=== PATIENT | male | born 1960 | race Caucasian/White ===

== ENCOUNTER 2016-07-10 08:35 | Emergency (ER) | payer MEDICARE, OTHER ==
[~2016-07-10] VITALS: Ht 175.3 cm; Wt 127.0 kg
[2016-07-10] MEDS ORDERED: SODIUM CHLORIDE FLUSH 10ML SYR IVF ONE (09:30)
[2016-07-10] MEDS ORDERED: ONDANSETRON 2MG/ML, 2ML IVPush ONE (09:30)
[2016-07-10] MEDS ORDERED: SODIUM CHLORIDE 0.9% 1,000ML IVBOLUS ONE (09:30)
[2016-07-10] MEDS ORDERED: MORPHINE SULFATE 4 MG/ML, 1ML IVPush PRN (09:30)
[2016-07-10] MEDS ORDERED: MORPHINE SULFATE 4 MG/ML, 1ML ONE (09:55)
[2016-07-10] MEDS ORDERED: ONDANSETRON 2MG/ML, 2ML ONE (09:55)
[2016-07-10 10:30] LABS: IS PT STATUS REG ER OR PRE ER? YES
[2016-07-10] MEDS ORDERED: ALBUTEROL/IPRATROPIUM 2.5MG/0.5MG, 3 ML NPPB ONE (10:30)
[2016-07-10] MEDS ORDERED: ALBUTEROL/IPRATROPIUM 2.5MG/0.5MG, 3 ML ONE (10:34)
[2016-07-10 10:39] LABS: ASPARTATE AMINO TRANSFERASE 25 U/L (15-37); BLOOD UREA NITROGEN 7 mg/dL (7-18)
[2016-07-10] MEDS ORDERED: methylPREDNISolone SOD SUCC 125 MG/2 ML IVPush SCH (11:30)
[2016-07-10] MEDS ORDERED: methylPREDNISolone SOD SUCC 125 MG/2 ML ONE (11:32)
[2016-07-10 12:30] VITALS: BP 142/75
== END 2016-07-10 12:33 | disposition home or self-care (01) ==
LOC: ED 09:07
DX: J44.1 Chronic obstructive pulmonary disease with (acute) exacerbation (principal); R10.9 Unspecified abdominal pain; E78.5 Hyperlipidemia, unspecified
CPT/HCPCS: 36415; 74022; 80053; 81003; 83690; 83880; 84484; 85025; 85379; 85610; 85730; 93005; 93970; 94640; 96361; 96374; 96375; 99285; J2405; J2930; J7030; J7620

== ENCOUNTER 2017-02-27 19:06 | Emergency (ER) | payer MEDICARE, OTHER ==
[~2017-02-27] VITALS: Ht 177.8 cm; Wt 132.5 kg
[2017-02-27 19:35] LABS: BASOPHILS # (AUTO) 0.02 x10^3/uL (0-0.1); BASOPHILS % (AUTO) 0 % (0-1); EOSINOPHILS # (AUTO) 0.13 x10^3/uL (0-0.4); EOSINOPHILS % (AUTO) 1 % (1-7); LYMPHOCYTES # (AUTO) 1.98 x10^3/uL (1-3.4); LYMPHOCYTES % (AUTO) 21 % (22-44); MD NO; MEAN CORPUSCULAR HEMOGLOBIN 33.3 pg (27.5-34.5); MEAN CORPUSCULAR HGB CONC 33.3 g/dL (33.2-36.2); MEAN CORPUSCULAR VOLUME 100.2 fL (81-97); MEAN PLATELET VOLUME 8.7 fL (7.4-10.4); MONOCYTES # (AUTO) 0.61 x10^3/uL (0.2-0.8); MONOCYTES % (AUTO) 7 % (2-9); NEUTROPHILS # (AUTO) 6.54 x10^3/uL (1.8-6.8); NEUTROPHILS % (AUTO) 71 % (42-75); PLATELET COUNT 142 x10^3/uL (130-400); RED BLOOD COUNT 5.77 x10^6/uL (4.38-5.82); RED CELL DISTRIBUTION WIDTH 13.9 % (9.4-14.8)
[2017-02-27 19:49] LABS: ALANINE AMINOTRANSFERASE 18 U/L (12-78); ALBUMIN 3.5 g/dL (3.4-5.0); ANION GAP 7 mmol/L (5-15); CALCIUM 9.2 mg/dL (8.5-10.1); CHLORIDE 102 mmol/L (98-107); CREATININE 0.99 mg/dL (0.7-1.3)
[2017-02-27 19:51] LABS: ALKALINE PHOSPHATASE 96 U/L (45-117); BILIRUBIN,TOTAL 0.7 mg/dL (0.2-1.0); TOTAL PROTEIN 8.4 g/dL (6.4-8.2)
[2017-02-27] MEDS ORDERED: methylPREDNISolone SOD SUCC 125 MG/2 ML IVPush SCH (20:00)
[2017-02-27] MEDS ORDERED: SODIUM CHLORIDE 0.9% 1,000ML IVBOLUS ONE (20:00)
[2017-02-27] MEDS ORDERED: ALBUTEROL/IPRATROPIUM 2.5MG/0.5MG, 3 ML NPPB ONE (20:00)
[2017-02-27] MEDS ORDERED: ALBUTEROL SULFATE 2.5 MG/3 ML NPPB ONE (20:00)
[2017-02-27] MEDS ORDERED: OMNIPAQUE 350 MG/ML, 100ML BOTTLE ONE (20:00)
[2017-02-27] MEDS ORDERED: ONDANSETRON 2MG/ML, 2ML IVPush ONE (20:00)
[2017-02-27] MEDS ORDERED: SODIUM CHLORIDE FLUSH 10ML SYR IVF ONE (20:00)
[2017-02-27] MEDS ORDERED: ALBUTEROL/IPRATROPIUM 2.5MG/0.5MG, 3 ML ONE (20:06)
[2017-02-27] MEDS ORDERED: MORPHINE SULFATE 4 MG/ML, 1ML ONE ×2 (20:13→22:29)
[2017-02-27] MEDS ORDERED: ONDANSETRON 2MG/ML, 2ML ONE (20:13)
[2017-02-27] MEDS: MORPHINE SULFATE 4 MG/ML, 1ML IVPush PRN ×2 (20:26→22:31)
[2017-02-27] MEDS ORDERED: methylPREDNISolone SOD SUCC 125 MG/2 ML IVPush ONE (20:30)
[2017-02-27] MEDS ORDERED: methylPREDNISolone SOD SUCC 125 MG/2 ML ONE (20:38)
[2017-02-27 20:41] VITALS: BP 148/95
[2017-02-27 21:00] LABS: MICROSCOPIC AUTO
[2017-02-27 21:02] LABS: CULTURE INDICATED? NO
== END 2017-02-27 23:44 | disposition home or self-care (01) ==
LOC: ED 23:15
DX: R10.84 Generalized abdominal pain (principal); J44.1 Chronic obstructive pulmonary disease with (acute) exacerbation; F17.200 Nicotine dependence, unspecified, uncomplicated; E78.00 Pure hypercholesterolemia, unspecified
CPT/HCPCS: 36415; 71045; 74177; 80053; 81001; 83690; 85025; 93005; 94640; 96361; 96374; 96375; 96376; 99285; J2405; J2930; J7030; Q9967; J7620

== ENCOUNTER 2018-03-26 21:57 | Inpatient (IN) | payer MEDICARE ==
[~2018-03-26] VITALS: Ht 175.3 cm; Wt 134.5 kg
[2018-03-26] MEDS ORDERED: ASPIRIN 81 MG TABLET CHEW ONE (22:28)
[2018-03-26] MEDS ORDERED: ASPIRIN 81 MG TABLET CHEW PO ONE (22:30)
--- NOTE | 2018-03-26 22:30 | NUR ---
first contact with pt. pt c/o chest tightness radiating to left arm with sob, dizzyness, nausea since 5pm today. pt denies cardiac hx. pt has hx of copd. pt denies v/d/bales at this time. nsr without ectopy on commercial lines account executive rate 70's. all monitors in place. call light within reach.
--- NOTE | 2018-03-26 22:35 | NUR ---
xray in room
--- NOTE | 2018-03-26 22:35 | NUR ---
pt medicated per emar. pt tolerated well. pt aox4. resps even and unlabored.
[2018-03-26 22:38] LABS: BASOPHILS # (AUTO) 0.05 x10^3/uL (0-0.1); BASOPHILS % (AUTO) 1 % (0-1); EOSINOPHILS # (AUTO) 0.14 x10^3/uL (0-0.4); EOSINOPHILS % (AUTO) 2 % (1-7); LYMPHOCYTES # (AUTO) 2.42 x10^3/uL (1-3.4); LYMPHOCYTES % (AUTO) 31 % (22-44); MD NO; MEAN CORPUSCULAR HEMOGLOBIN 33.7 pg (27.5-34.5); MEAN CORPUSCULAR HGB CONC 33.1 g/dL (33.2-36.2); MEAN CORPUSCULAR VOLUME 101.9 fL (81-97); MEAN PLATELET VOLUME 8.8 fL (7.4-10.4); MONOCYTES # (AUTO) 0.66 x10^3/uL (0.2-0.8); MONOCYTES % (AUTO) 8 % (2-9); NEUTROPHILS # (AUTO) 4.56 x10^3/uL (1.8-6.8); NEUTROPHILS % (AUTO) 58 % (42-75); PLATELET COUNT 154 x10^3/uL (130-400); RED BLOOD COUNT 5.36 x10^6/uL (4.38-5.82); RED CELL DISTRIBUTION WIDTH 14.2 % (9.4-14.8)
[2018-03-26 22:48] LABS: ALANINE AMINOTRANSFERASE 21 U/L (12-78); ALBUMIN 3.2 g/dL (3.4-5.0); ANION GAP 7 mmol/L (5-15); CALCIUM 8.5 mg/dL (8.5-10.1); CHLORIDE 104 mmol/L (98-107); CREATININE 1.07 mg/dL (0.7-1.3)
[2018-03-26 22:53] LABS: ALKALINE PHOSPHATASE 90 U/L (45-117); BILIRUBIN,TOTAL 0.3 mg/dL (0.2-1.0); TOTAL PROTEIN 6.9 g/dL (6.4-8.2); TROPONIN I 0.018 ng/mL (0.000-0.045)
--- NOTE | 2018-03-26 23:19 | NUR ---
PT RESTING IN [facility]. PT AOX4. RESPS EVEN AND UNLABORED. ALL MONITORS IN PLACE. CALL LIGHT WITHIN REACH.
[2018-03-26] MEDS ORDERED: METOPROLOL 1 MG/ML, 5ML IVPush STA (23:39)
--- NOTE | 2018-03-26 23:45 | NUR ---
pt's bp 187/112. edmd notified.
[2018-03-26] MEDS ORDERED: ONDANSETRON 2MG/ML, 2ML ONE (23:46)
[2018-03-26] MEDS ORDERED: MORPHINE SULFATE 4 MG/ML, 1ML ONE (23:47)
[2018-03-26] MEDS ORDERED: METOPROLOL 1 MG/ML, 5ML ONE (23:51)
--- NOTE | 2018-03-26 23:51 | NUR ---
HOSPITALIST TWILA AT BEDSIDE. MD MATTSON AND MD GARCIA AWARE MOST RECENT BP 183/113.
[2018-03-27] MEDS ORDERED: MORPHINE SULFATE 4 MG/ML, 1ML IVPush PRN
[2018-03-27] MEDS ORDERED: BISACODYL 10 MG SUPP PR PRN
[2018-03-27] MEDS ORDERED: ONDANSETRON ODT 4 MG PO PRN
[2018-03-27] MEDS ORDERED: PROMETHAZINE 25 MG/ML, 1ML IM PRN
[2018-03-27] MEDS ORDERED: ACETAMINOPHEN 325 MG TABLET PO PRN
[2018-03-27] MEDS ORDERED: DOCUSATE 100 MG CAPSULE PO PRN
[2018-03-27] MEDS ORDERED: NITROGLYCERIN 0.4 MG BOTTLE (25 TABS) SL PRN
[2018-03-27] MEDS ORDERED: ONDANSETRON 2MG/ML, 2ML IVPush PRN ×2
[2018-03-27] MEDS ORDERED: hydrALAzine 20 MG/ML, 1ML IVPush PRN
[2018-03-27] MEDS ORDERED: morphine SULFATE 10 MG/ML, 1ML IVPush PRN
[2018-03-27] MEDS ORDERED: POLYETHYLENE GLYCOL 17 GM PACKET PO PRN
[2018-03-27] MEDS ORDERED: OXYcodone IR 5MG TABLET PO PRN
--- NOTE | 2018-03-27 | NUR ---
PIV EST, PT MEDICATED PER EMAR. TOLERATED WELL. PT A&O, RESPS EVEN AND UNLABORED. CP LEVEL 5/10 AT THIS TIME. NSR RATE 70'S WITH NO ECTOPY ON MONITOR. BEDSIDE REPORT GIVEN TO DUNCAN NOGUEIRA.
--- NOTE | 2018-03-27 00:07 | NUR ---
sbar report given to kassy mercado. all questions answered.
[2018-03-27 00:21] LABS: FREE T4 (FREE THYROXINE) 0.93 ng/dL (0.76-1.46); HEMOGLOBIN A1C 6.2 % (4.2-6.3); THYROID STIMULATING HORMONE 7.4 mIU/L (0.358-3.740)
[2018-03-27] MEDS: methylPREDNISolone SOD SUCC 125 MG/2 ML IVPush SCH ×4 (00:49→19:49)
[2018-03-27] MEDS: LOSARTAN 50MG TABLET PO SCH (00:49)
[2018-03-27] MEDS: HEPARIN 5,000 UNITS/ML, 1ML SQ SCH ×3 (00:49→16:52)
[2018-03-27 01:01] VITALS: BP 160/106
[2018-03-27 01:54] LABS: BASOPHILS # (AUTO) 0.04 x10^3/uL (0-0.1); BASOPHILS % (AUTO) 1 % (0-1); EOSINOPHILS # (AUTO) 0.12 x10^3/uL (0-0.4); EOSINOPHILS % (AUTO) 2 % (1-7); LYMPHOCYTES % (AUTO) 33 % (22-44); MD NO; MEAN CORPUSCULAR HGB CONC 33.2 g/dL (33.2-36.2); MEAN CORPUSCULAR VOLUME 102.5 fL (81-97); MEAN PLATELET VOLUME 9.1 fL (7.4-10.4); MONOCYTES # (AUTO) 0.55 x10^3/uL (0.2-0.8); MONOCYTES % (AUTO) 7 % (2-9); NEUTROPHILS # (AUTO) 4.26 x10^3/uL (1.8-6.8); NEUTROPHILS % (AUTO) 58 % (42-75); PLATELET COUNT 156 x10^3/uL (130-400); RED CELL DISTRIBUTION WIDTH 14.2 % (9.4-14.8)
[2018-03-27 02:07] LABS: ALBUMIN 3.5 g/dL (3.4-5.0); ANION GAP 5 mmol/L (5-15); CALCIUM 8.7 mg/dL (8.5-10.1); CHLORIDE 104 mmol/L (98-107)
[2018-03-27 02:14] LABS: ALANINE AMINOTRANSFERASE 27 U/L (12-78); ALKALINE PHOSPHATASE 99 U/L (45-117); BILIRUBIN,TOTAL 0.3 mg/dL (0.2-1.0); CHOL/HDL RATIO 3.9; CHOLESTEROL, TOTAL 181 mg/dL (140-239); CREATININE 1.05 mg/dL (0.7-1.3); HDL CHOL % 25 % (26-37); HDL CHOLESTEROL (DIRECT) 46 mg/dL (40-60); LDL CHOLESTEROL,CALCULATED 110 mg/dL (54-169); LDL/HDL RATIO 2.4 (0.5-3.0); TOTAL PROTEIN 7.5 g/dL (6.4-8.2); TRIGLYCERIDES 126 mg/dL (50-200); TROPONIN I 0.021 ng/mL (0.000-0.045); VLDL CHOLESTEROL 25 mg/dL (0-25)
[2018-03-27 02:26] VITALS: BP 161/94
[2018-03-27 02:28] VITALS: BP 161/94
[2018-03-27 02:40] LABS: TROPONIN I 0.018 ng/mL (0.000-0.045)
[2018-03-27] MEDS ORDERED: ASPIRIN 325 MG TABLET EC PO SCH (06:00)
[2018-03-27] MEDS ORDERED: REGADENOSON 0.4 MG/5 ML SYRINGE ONE (07:49)
[2018-03-27 08:53] VITALS: BP 167/96
[2018-03-27 14:45] VITALS: BP 171/109
[2018-03-27] MEDS ORDERED: NICOTINE 7 MG/24 HR PATCH.TD24 TD SCH (18:30)
[2018-03-27] MEDS ORDERED: ENOXAPARIN 40 MG/0.4 ML SQ SCH ×3 (18:30)
[2018-03-27] MEDS ORDERED: ENOXAPARIN 100 MG/ML SQ SCH ×3 (18:30)
[2018-03-27] MEDS ORDERED: Enoxaparin 1 mg/kg protocol SQ SCH (18:30)
[2018-03-27] MEDS: METOPROLOL TARTRATE 25 MG TABLET PO SCH (19:49)
[2018-03-27 20:33] VITALS: BP 150/88
[2018-03-28] MEDS: LOSARTAN 50MG TABLET PO SCH (00:56)
[2018-03-28] MEDS: methylPREDNISolone SOD SUCC 125 MG/2 ML IVPush SCH ×3 (00:56→13:30)
[2018-03-28 02:50] VITALS: BP 144/76
[2018-03-28 06:23] LABS: MEAN CORPUSCULAR HGB CONC 33.4 g/dL (33.2-36.2); MEAN CORPUSCULAR VOLUME 101.8 fL (81-97); MEAN PLATELET VOLUME 9.1 fL (7.4-10.4); PLATELET COUNT 160 x10^3/uL (130-400); RED BLOOD COUNT 5.47 x10^6/uL (4.38-5.82); RED CELL DISTRIBUTION WIDTH 14.1 % (9.4-14.8)
[2018-03-28 06:34] LABS: ALBUMIN 3.3 g/dL (3.4-5.0); ANION GAP 3 mmol/L (5-15); CALCIUM 9.2 mg/dL (8.5-10.1); CHLORIDE 103 mmol/L (98-107); CREATININE 0.92 mg/dL (0.7-1.3)
[2018-03-28 06:39] LABS: BASOPHILS # (AUTO) 0.01 x10^3/uL (0-0.1); BASOPHILS % (AUTO) 0 % (0-1); EOSINOPHILS % (AUTO) 0 % (1-7); LYMPHOCYTES # (AUTO) 0.85 x10^3/uL (1-3.4); LYMPHOCYTES % (AUTO) 6 % (22-44); MD SCAN; MONOCYTES # (AUTO) 0.15 x10^3/uL (0.2-0.8); MONOCYTES % (AUTO) 1 % (2-9); NEUTROPHILS # (AUTO) 13.27 x10^3/uL (1.8-6.8); NEUTROPHILS % (AUTO) 93 % (42-75)
[2018-03-28 08:03] VITALS: BP 120/74
[2018-03-28] MEDS: METOPROLOL TARTRATE 25 MG TABLET PO SCH (08:13)
[2018-03-28] MEDS ORDERED: ALBUTEROL SULFATE 2.5 MG/3 ML ONE (10:17)
[2018-03-28] MEDS ORDERED: ALBUTEROL SULFATE 2.5 MG/3 ML NPPB PRN (10:30)
[2018-03-28] MEDS ORDERED: ALBUTEROL/IPRATROPIUM 2.5MG/0.5MG, 3 ML NPPB SCH ×2 (11:00→15:00)
[2018-03-28 12:00] LABS: BASOPHILS # (AUTO) 0.01 x10^3/uL (0-0.1); BASOPHILS % (AUTO) 0 % (0-1); EOSINOPHILS % (AUTO) 0 % (1-7); LYMPHOCYTES # (AUTO) 0.83 x10^3/uL (1-3.4); LYMPHOCYTES % (AUTO) 6 % (22-44); MD NO; MEAN CORPUSCULAR HEMOGLOBIN 33.6 pg (27.5-34.5); MEAN CORPUSCULAR VOLUME 101.8 fL (81-97); MEAN PLATELET VOLUME 9.3 fL (7.4-10.4); MONOCYTES # (AUTO) 0.22 x10^3/uL (0.2-0.8); MONOCYTES % (AUTO) 2 % (2-9); NEUTROPHILS # (AUTO) 13.53 x10^3/uL (1.8-6.8); NEUTROPHILS % (AUTO) 93 % (42-75); PLATELET COUNT 163 x10^3/uL (130-400); RED BLOOD COUNT 5.46 x10^6/uL (4.38-5.82); RED CELL DISTRIBUTION WIDTH 13.7 % (9.4-14.8)
[2018-03-28 14:25] VITALS: BP 135/77
[2018-03-28] MEDS ORDERED: ASPIRIN 81 MG TABLET EC PO SCH (15:30)
[2018-03-28] MEDS ORDERED: METO25TA35 PO (17:19)
[2018-03-28] MEDS ORDERED: NICO-485 TD (17:19)
[2018-03-28] MEDS ORDERED: ASPI81TA45 PO (17:19)
[2018-03-28] MEDS ORDERED: METH4TAB2 PO (17:19)
[2018-03-28] MEDS ORDERED: LOSA50TA2 PO (17:19)
[2018-03-28] MEDS ORDERED: ALBU8.5H8 INH (17:19)
== END 2018-03-28 18:00 | disposition home or self-care (01) | DRG 191 ==
LOC: ED 22:48 → EDIP 03-27 00:27 → 5SO 03-27 00:32
PROVIDERS: ADMIT Internal Medicine; ATTEND Internal Medicine
DX: J44.1 Chronic obstructive pulmonary disease with (acute) exacerbation (principal); E44.0 Moderate protein-calorie malnutrition; Z68.41 Body mass index [BMI] 40.0-44.9, adult; E66.9 Obesity, unspecified; I48.0 Paroxysmal atrial fibrillation; R07.89 Other chest pain; D75.1 Secondary polycythemia; E02 Subclinical iodine-deficiency hypothyroidism; E78.5 Hyperlipidemia, unspecified; F15.90 Other stimulant use, unspecified, uncomplicated; F17.200 Nicotine dependence, unspecified, uncomplicated; F32.9 Major depressive disorder, single episode, unspecified; F41.1 Generalized anxiety disorder; F43.10 Post-traumatic stress disorder, unspecified; I10 Essential (primary) hypertension; R73.03 Prediabetes; Z91.14 Patient's other noncompliance with medication regimen
CPT/HCPCS: 36415; 71045; 78452; 80048; 80053; 80061; 82040; 83036; 83735; 84439; 84443; 84484; 85025; 85379; 93005; 93017; 93306; 94640; 96374; 96375; 99285; G0378; J1644; J2405; J2785; J7613; J7620; A9502; J0360; J2930

== ENCOUNTER 2019-04-04 12:44 | Emergency (ER) | payer MEDICARE ==
[~2019-04-04] VITALS: Ht 172.7 cm; Wt 130.7 kg
[~2019-04-04 12:44] MED LIST: ALBU8.5H8 INH; ASPI81TA45 PO; LOSA50TA2 PO; METH4TAB2 PO; METO25TA35 PO; NICO-485 TD
[2019-04-04 13:58] LABS: BASOPHILS # (AUTO) 0.09 x10^3/uL (0-0.1); BASOPHILS % (AUTO) 1 % (0-1); EOSINOPHILS # (AUTO) 0.09 x10^3/uL (0-0.4); EOSINOPHILS % (AUTO) 1 % (1-7); LYMPHOCYTES # (AUTO) 2.31 x10^3/uL (1-3.4); LYMPHOCYTES % (AUTO) 29 % (22-44); MD NO; MEAN CORPUSCULAR HEMOGLOBIN 33.5 pg (27.5-34.5); MEAN CORPUSCULAR HGB CONC 32.8 g/dL (33.2-36.2); MEAN CORPUSCULAR VOLUME 102.3 fL (81-97); MEAN PLATELET VOLUME 8.4 fL (7.4-10.4); MONOCYTES # (AUTO) 0.51 x10^3/uL (0.2-0.8); MONOCYTES % (AUTO) 6 % (2-9); NEUTROPHILS # (AUTO) 5.05 x10^3/uL (1.8-6.8); NEUTROPHILS % (AUTO) 63 % (42-75); PLATELET COUNT 149 x10^3/uL (130-400); RED BLOOD COUNT 5.75 x10^6/uL (4.38-5.82); RED CELL DISTRIBUTION WIDTH 13.9 % (9.4-14.8)
[2019-04-04 14:09] LABS: ALBUMIN 3.6 g/dL (3.4-5.0); ANION GAP 7 mmol/L (5-15); CALCIUM 9.3 mg/dL (8.5-10.1); CHLORIDE 101 mmol/L (98-107); CREATININE 1.25 mg/dL (0.7-1.3)
[2019-04-04 14:57] VITALS: BP 169/113
--- NOTE | 2019-04-04 15:06 | NUR ---
HOME RESTORATION SERVICE CLEANER: PT AMBULATORY WITH STEADY GAIT TO ROOM FROM LOBBY AT THIS TIME. WILLIAM
--- NOTE | 2019-04-04 15:07 | NUR ---
BREAK RN: PT CHANGED INTO GOWN, UPRIGHT ON GURNEY AWAKE & CALM, RESPONDS APPROP TO STAFF, NAD COMFORT MEASURES PROVIDED, CALL LIGHT WITHIN REACH.
[2019-04-04 15:40] LABS: MICROSCOPIC AUTO
[2019-04-04 16:08] LABS: CULTURE INDICATED? YES
--- NOTE | 2019-04-04 16:59 | NUR ---
ORDERED ENEMA ADMINISTERED. PT RESTING IN BED ALLOWING ENEMA TO SOAK IN. BEDSIDE COMMODE AT BEDSIDE, WITH CALL LIGHT AND TOILET TISSUE.
--- NOTE | 2019-04-04 17:11 | NUR ---
PT ON BEDSIDE COMMODE HAVING BM
== END 2019-04-04 18:00 | disposition home or self-care (01) ==
LOC: ED 16:40
DX: K56.41 Fecal impaction (principal); I10 Essential (primary) hypertension; J44.9 Chronic obstructive pulmonary disease, unspecified; R10.31 Right lower quadrant pain; E78.5 Hyperlipidemia, unspecified; F17.200 Nicotine dependence, unspecified, uncomplicated
CPT/HCPCS: 36415; 74022; 80048; 81001; 82040; 85025; 87086; 99284

== ENCOUNTER 2020-07-23 08:19 | Emergency (ER) | payer SELFPAY ==
[~2020-07-23] VITALS: Ht 177.8 cm; Wt 128.2 kg
[2020-07-23] MEDS ORDERED: HYDROcodone/APAP 5/325 TABLET ONE (09:13)
--- NOTE | 2020-07-23 09:17 | NUR ---
MANAS RN: MEDICATED PER APR, PT RESTING, VERBALIZED NO NEEDS AT THIS TIME
[2020-07-23] MEDS ORDERED: HYDROcodone/APAP 5/325 TABLET PO ONE (09:30)
[2020-07-23 09:56] VITALS: BP 190/115
== END 2020-07-23 11:08 | disposition home or self-care (01) ==
LOC: ED 10:58
DX: K02.9 Dental caries, unspecified (principal); K08.89 Other specified disorders of teeth and supporting structures; I10 Essential (primary) hypertension; J44.9 Chronic obstructive pulmonary disease, unspecified; E78.5 Hyperlipidemia, unspecified; F17.210 Nicotine dependence, cigarettes, uncomplicated
CPT/HCPCS: 99283